=== PATIENT | male | born 1970 | race Caucasian/White ===

== ENCOUNTER 2017-04-25 16:58 | Emergency (ER) | payer SELFPAY ==
[2017-04-25] MEDS ORDERED: LIDOCAINE 1% 10 ML VIAL INJ ONE (17:42)
[2017-04-25 17:43] VITALS: BP 150/86; TEMP 96; O2SAT 100
[2017-04-25] MEDS ORDERED: SULFA/TRIMETH 800/160 (DS) TAB 1 EA TAB PO ONE (17:53)
--- NOTE | 2017-04-25 17:57 | ED.PDOC ---
History of Present Illness - General Chief Complaint: General Stated Complaint: fish hook in fingers Time Seen by Provider: 04/25/17 16:59 Source: patient Exam Limitations: no limitations - History of Present Illness Initial Comments: the patient is a 47-year-old male presenting to the emergency room secondary to getting fishhook stuck in the tips of the fourth and first digits of his right hand. This occurredapproximately 2 hours prior to my evaluation. No other injuries. Wounds were hemostatic. Buttocks are still in place. Timing/Duration: 1-3 hours Severity: mild Improving Factors: nothing Worsening Factors: nothing Allergies/Adverse Reactions: Allergies Aspirin Allergy (Verified 04/25/17 17:43) Penicillins Allergy (Verified 04/25/17 17:43) Home Medications: Ambulatory Orders Sulfa/Trimeth 800/160 (Ds) Tab [Bactrim DS Tab] 1 ea PO BID #7 tab 04/25/17 Review of Systems - Review of Systems Constitutional: States: no symptoms reported EENTM: States: no symptoms reported Respiratory: States: no symptoms reported Cardiology: States: no symptoms reported Gastrointestinal/Abdominal: States: no symptoms reported Genitourinary: States: no symptoms reported Musculoskeletal: States: no symptoms reported Skin: States: see HPI Neurological: States: no symptoms reported Endocrine: States: no symptoms reported Past Medical History (General) - Patient Medical History Hx Congestive Heart Failure: No Hx Hypertension: Yes Hx Diabetes: No Surgical History: no surgical history - Vaccination History Hx Tetanus, Diphtheria Vaccination: Yes Hx Influenza Vaccination: No - Social History Hx Tobacco Use: Yes Family Medical History - Family History Father Family History: Unknown Living Status: Unknown Physical Exam - Physical Exam General Appearance: Alert, Comfortable, No apparent distress Eye Exam: bilateral normal Ears, Nose, Throat: hearing grossly normal, other - poor dentition Neck: full range of motion, supple Respiratory: no respiratory distress, no accessory muscle use Cardiovascular/Chest: normal peripheral pulses, no edema Peripheral Pulses: radial,right: 2+, radial,left: 2+ Extremity: normal range of motion, no pedal edema, no calf tenderness, normal capillary refill 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 Progress - Progress Progress: 04/25/17 17:55 the patient is a 47-year-old male presenting to the emergency room secondary to fish hooks embedded in the first and fourth digits of the right hand. Risk and benefits of removal explained and patient agrees to proceed. 1 % lidocaine without epinephrine 1 cc used for local anesthetic. Wounds cleaned with alcohol swabs. Hemostats used to back out the hooks. Band-Aids applied. The patient was given a dose of Bactrim. He'll be placed on Bactrim for 3 days. ER warnings were given for any worsening. Departure - Departure Clinical Impression: [place] injury to finger Qualifiers: Encounter type: initial encounter Laterality: right Qualified Code(s): S69.91XA - Unspecified injury of right wrist, hand and finger(s), initial encounter Disposition: Discharge to Home or Self Care Condition: Fair Departure Forms: ED Discharge - Pt. Copy, Patient Portal Self Enrollment Diet: regular diet Activity: increase activity as tolerated Prescriptions: Sulfa/Trimeth 800/160 (Ds) Tab [Bactrim DS Tab] 1 ea PO BID #7 tab Home Medications: Ambulatory Orders Sulfa/Trimeth 800/160 (Ds) Tab [Bactrim DS Tab] 1 ea PO BID #7 tab 04/25/17 Additional Instructions: the patient is a 47-year-old male presenting to the emergency room secondary to fish hooks embedded in the first and fourth digits of the right hand. Risk and benefits of removal explained and patient agrees to proceed. 1 % lidocaine without epinephrine 1 cc used for local anesthetic. Wounds cleaned with alcohol swabs. Hemostats used to back out the hooks. Band-Aids applied. The patient was given a dose of Bactrim. He'll be placed on Bactrim for 3 days. ER warnings were given for any worsening.
== END 2017-04-25 18:08 | disposition home or self-care (01) ==
LOC: ER 16:58
DX: S60.458A Superficial foreign body of other finger, initial encounter (principal); I10 Essential (primary) hypertension; Z88.6 Allergy status to analgesic agent; Z88.0 Allergy status to penicillin; X58.XXXA Exposure to other specified factors, initial encounter; Y93.89 Activity, other specified; Y92.9 Unspecified place or not applicable